=== PATIENT | male | born 1950 | race Caucasian/White ===

== ENCOUNTER 2018-07-29 09:48 | Outpatient (CLI) | payer MEDICARE, BC | END 2018-07-29 23:59 | disposition home or self-care (01) | LOC: RAD 09:48 | PROVIDERS: ATTEND Psychiatry & Neurology Neurology | DX: R56.9 Unspecified convulsions (principal) | CPT/HCPCS: 95819 ==

== ENCOUNTER 2022-05-31 06:37 | Day surgery (SDC) | payer MEDICARE, BC ==
[2022-05-29 14:53] LABS: BASOPHILS % (AUTO) 0.6 % (0-1); EOSINOPHILS % (AUTO) 0.8 % (0-6); HEMATOCRIT 43.2 % (42.0-52.0); HEMOGLOBIN 14.7 g/dl (14.0-17.9); LYMPHOCYTES # (AUTO) 1.9 X10'3 (1.1-4.8); LYMPHOCYTES % (AUTO) 37.6 % (21-51); MEAN CORPUSCULAR HEMOGLOBIN 35.5 PG (27.0-31.0); MEAN CORPUSCULAR HGB CONC 34.1 g/dL (33.0-36.5); MEAN PLATELET VOLUME 7.5 FL (7.4-10.4); MONOCYTES # (AUTO) 0.5 X10'3 (0-0.9); MONOCYTES % (AUTO) 10.3 % (2-12); NEUTROPHILS # (AUTO) 2.5 X10'3 (1.8-7.7); NEUTROPHILS % (AUTO) 50.7 % (42-75); PLATELET COUNT 219 X10'3 (140-440); RED BLOOD COUNT 4.15 X10'6 (4.70-6.10); RED CELL DISTRIBUTION WIDTH 12.9 % (11.5-14.5)
[2022-05-29 15:04] LABS: APTT 27 SECONDS (22-32)
[2022-05-29 15:08] LABS: ALANINE AMINOTRANSFERASE 21 U/L (12-78); ALBUMIN 3.4 G/DL (3.4-5.0); ALBUMIN/GLOBULIN RATIO 1.1 (1.1-1.5); ALKALINE PHOSPHATASE 49 IU/L (46-116); ANION GAP 3 (8-16); ASPARTATE AMINO TRANSFERASE 18 U/L (10-37); BILIRUBIN,TOTAL 0.5 MG/DL (0.1-1.0); BLOOD UREA NITROGEN 14 MG/DL (7-18); BUN/CREATININE RATIO 16.5 (5.4-32.0); CALCIUM 8.6 MG/DL (8.5-10.1); CHLORIDE 101 MMOL/L (99-107); CREATININE 0.85 MG/DL (0.60-1.10); GLUCOSE 86 MG/DL (70-104); POTASSIUM 4.2 MMOL/L (3.5-5.1); SODIUM 137 MMOL/L (135-145); TOTAL CARBON DIOXIDE 33.2 MMOL/L (24-32); TOTAL PROTEIN 6.5 G/DL (6.4-8.2); eGFR 89 ML/MIN
[2022-05-31] VITALS (11 sets, daily range): BP systolic 93–116; BP diastolic 43–79
[~2022-05-31] VITALS: Ht 185.4 cm; Wt 77.9 kg
[2022-05-31] MEDS ORDERED: nitroGLYCERIN 0.4mg SUBLingual tab SL PRN (06:50)
[2022-05-31] MEDS ORDERED: VITA0.4T18 (07:07)
[2022-05-31] MEDS ORDERED: LACT1CAP65 PO (07:07)
[2022-05-31] MEDS ORDERED: MULT-227 PO (07:07)
[2022-05-31] MEDS ORDERED: CHOL400T57 PO (07:07)
[2022-05-31] MEDS ORDERED: VALA500T41 PO (07:07)
[2022-05-31] MEDS ORDERED: TADA20TA PO (07:07)
[2022-05-31] MEDS ORDERED: CBD (07:07)
[2022-05-31] MEDS ORDERED: MAGN500C4 PO (07:07)
[2022-05-31] MEDS ORDERED: OMEG-45 PO (07:07)
[2022-05-31] MEDS: diphenhydrAMINE 25mg capsule PO PRN (07:34)
[2022-05-31] MEDS: normal saline 1,000 ML IV SCH (07:37)
[2022-05-31] MEDS ORDERED: midazolam 1 mg/ML 2ml injection ONE (08:39)
[2022-05-31] MEDS ORDERED: fentaNYL/PF 50MCG/1 ML 2ML syringe ONE (08:39)
[2022-05-31] MEDS ORDERED: LIDOcaine 1% 30ml preserv. free vial ONE (08:39)
[2022-05-31] MEDS ORDERED: iohexol 350MG/ML 100ml bottle IV ONE (08:39)
[2022-05-31] MEDS ORDERED: ondansetron/PF 4mg/2ml inj IV PRN (10:30)
[2022-05-31] MEDS ORDERED: HYDROcodone/acetaminophen 5mg/325mg tablet PO PRN (10:30)
[2022-05-31] MEDS ORDERED: OXAZEpam 15mg capsule PO PRN (10:30)
[2022-05-31] MEDS ORDERED: HYDROcodone/acetaminophen 10/325mg tab PO PRN (10:30)
[2022-05-31] MEDS ORDERED: proCHLORperazine 10 MG/2 ml inj IV PRN (10:30)
[2022-05-31] MEDS: LORazepam 0.5 MG tablet PO PRN (10:55)
--- NOTE | 2022-05-31 14:41 | NUR ---
Pt at bedside. Pt laying supine in bed, reading aggie device. Requesting saltines and "more water". Pt denies "real pain" states he has a "dull ache" at the right groin. Pt site is stable, DRSG CD&I, no s/s of bleeding or infection. VS stable as charted.
--- NOTE | 2022-05-31 15:08 | NUR ---
Pt sitting up in bed at 45 degrees. Site stable. DRSG intact, CD. Pt eating saltines in bed. VS stable as charted.
== END 2022-05-31 16:05 | disposition home or self-care (01) ==
LOC: SSTAY O 06:37
PROVIDERS: ATTEND Internal Medicine Cardiovascular Disease
DX: R94.39 Abnormal result of other cardiovascular function study (principal); I44.7 Left bundle-branch block, unspecified; I25.10 Atherosclerotic heart disease of native coronary artery without angina pectoris; Z79.01 Long term (current) use of anticoagulants; Z79.899 Other long term (current) drug therapy
CPT/HCPCS: 36415; 71046; 80053; 85025; 85610; 85730; 93005; 93458; 99152; 99153; C1760; C1769; J1644; J2250; J3010; J3490; J7030; Q0163; Q9967